=== PATIENT | female | born 1990 | race Two or more races ===

== ENCOUNTER 2020-09-12 06:31 | Emergency (ER) | payer OTHER ==
[~2020-09-12] VITALS: Ht 170.2 cm; Wt 80.3 kg
[~2020-09-12 06:31] MED LIST: CIPRO500 MG PO; KETO10TA2 PO
[2020-09-12] MEDS ORDERED: WELLBUTRIN SR150 MG PO (07:22)
[2020-09-12] MEDS ORDERED: BACTRIM DS TAB1 EACH PO (12:48)
[2020-09-12] MEDS ORDERED: TAMS0.4C PO (12:48)
[2020-09-12] MEDS ORDERED: KETO10TA2 PO (12:48)
== END 2020-09-12 12:55 | disposition home or self-care (01) ==
LOC: ER 06:31
DX: R10.32 Left lower quadrant pain (principal)

== ENCOUNTER 2020-12-30 21:38 | Emergency (ER) | payer OTHER ==
[~2020-12-30] VITALS: Ht 162.6 cm; Wt 79.4 kg
[~2020-12-30 21:38] MED LIST changes: +BACTRIM DS TAB1 EACH PO; +TAMS0.4C PO; +WELLBUTRIN SR150 MG PO
[2020-12-30] MEDS ORDERED: APLENZIN174 MG PO (22:19)
[2020-12-30] MEDS ORDERED: LITHATE5 MG PO (22:20)
[2020-12-31] MEDS ORDERED: CIPRO500 MG PO (05:58)
[2020-12-31] MEDS ORDERED: LEVSIN/SL0.125 MG SL (05:58)
== END 2020-12-31 06:06 ==
LOC: ER 21:38
DX: R10.11 Right upper quadrant pain (principal)

== ENCOUNTER 2022-01-22 10:24 | Outpatient (CLI) | payer OTHER ==
[~2022-01-22 10:24] MED LIST changes: +APLENZIN174 MG PO; +LEVSIN/SL0.125 MG SL; +LITHATE5 MG PO
[2022-01-23] MEDS ORDERED: BUPRO PO (11:14)
[2022-01-23] MEDS ORDERED: LITH PO (11:15)
== END 2022-01-22 10:25 | disposition home or self-care (01) ==
LOC: LAB 10:24
PROVIDERS: ATTEND Surgery
DX: C18.1 Malignant neoplasm of appendix (principal); K52.9 Noninfective gastroenteritis and colitis, unspecified; R10.31 Right lower quadrant pain; R19.7 Diarrhea, unspecified; Z20.818 Contact with and (suspected) exposure to other bacterial communicable diseases; Z20.822 Contact with and (suspected) exposure to COVID-19

== ENCOUNTER 2022-01-23 08:15 | Inpatient (IN) | payer OTHER ==
[~2022-01-23] VITALS: Ht 165.1 cm; Wt 83.9 kg
[2022-01-23] MEDS ORDERED: BUPRO PO (11:14)
[2022-01-23] MEDS ORDERED: LITH PO (11:15)
[2022-01-28] MEDS ORDERED: BUPROPION XL150 MG (15:27)
[2022-01-28] MEDS ORDERED: LITHIUM CARBON450 MG (15:27)
[2022-01-28] MEDS ORDERED: PANTOPRAZOLE SO40 MG (15:27)
[2022-02-01] MEDS ORDERED: PEPCID AC20 MG PO (10:49)
[2022-02-01] MEDS ORDERED: ULTRACET PO (10:49)
[2022-02-01] MEDS ORDERED: HYOSCYAMINE0.125 M1 SL (10:50)
[2022-02-01] MEDS ORDERED: INTESTINEX680 M1 PO (10:50)
[2022-02-03] MEDS ORDERED: ULTRACET PO (09:27)
== END 2022-02-03 11:59 | disposition home or self-care (01) | DRG 331 ==
LOC: O/R 01-28 05:40 → SURH 01-28 05:40 → SURG 01-28 07:00 → SURH 01-28 10:24
PROVIDERS: ADMIT Surgery; ATTEND Surgery
PROC: 07BC4ZZ Excision of Pelvis Lymphatic, Percutaneous Endoscopic Approach (ICD-10-PCS; 2022-01-28)
PROC: 3E0F7GC Introduction of Other Therapeutic Substance into Respiratory Tract, Via Natural or Artificial Opening (ICD-10-PCS; 2022-01-28)
PROC: 0DTF4ZZ Resection of Right Large Intestine, Percutaneous Endoscopic Approach (ICD-10-PCS; principal; 2022-01-28 07:00)
DX: C18.1 Malignant neoplasm of appendix (principal); Z20.822 Contact with and (suspected) exposure to COVID-19; J45.20 Mild intermittent asthma, uncomplicated